=== PATIENT | male | born 1995 | race Caucasian/White ===

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

== ENCOUNTER 2018-01-05 16:22 | Emergency (ER) | payer BC ==
[2018-01-05 16:26] VITALS: BP 124/64; PULSE 66; RESP 16; TEMP 97.9; O2SAT 100
--- NOTE | 2018-01-05 17:18 | RADRPT ---
EXAM DATE/TIME: 01/05/2018 16:58 [facility] COMPARISON: No previous studies available for comparison. INDICATIONS : Off and on right knee pain for 1 year after knee surgery, states feels like knee is popping in and ou t of place MEDICAL HISTORY : None. SURGICAL HISTORY : Right knee surgery ENCOUNTER: Initial ACUITY: 1 year PAIN SCORE: 7/10 LOCATION: Right knee FINDINGS: Previous cruciate repair. Small joint effusion. Anatomic alignment. No fracture. CONCLUSION: Previous cruciate repair, joint effusion.. Jarad Adams MD FACR on January 05, 2018 at 17:15 Board Certified Radiologist. This report was verified electronically.
--- NOTE | 2018-01-05 17:43 | PD ---
HPI Chief Complaint: Injury Time Seen by Provider: 17:03 Travel History International Travel<30 days: No Contact w/Intl Traveler<30days: No Traveled to known affect area: No History of Present Illness HPI This is a 22-year-old male with right knee pain and popping sensation for several months. He reports he has had a popping sensation since he had MCL repair done by Dr. Saab last year. No fever chills. No injury or trauma. Symptom severity is mild to moderate. Aggravated by walking and slightly relieved with wearing the brace provided by the orthopedist which she has on now. [facility] Past Medical History Medical History: Denies Significant Hx Diminished Hearing: No Immunizations Current: Yes Past Surgical History Ear Surgery: Yes (TUBES IN EARS 1997) Tympanostomy Tube: Yes Social History Alcohol Use: No Tobacco Use: No Substance Use: Yes (marijuana, sandra's in the past) Allergies-Medications (Allergen,Severity, Reaction): Coded Allergies: No Known Allergies (Verified Adverse Reaction, Unknown, 01/05/18) Reported Meds & Prescriptions Reported Meds & Active Scripts Active No Active Prescriptions or Reported Medications Review of Systems Except as stated in HPI: all other systems reviewed are Neg General / Constitutional: No: Fever Eyes: No: Visual changes HENT: No: Headaches Cardiovascular: No: Chest Pain or Discomfort Respiratory: No: Shortness of Breath Gastrointestinal: No: Abdominal Pain Physical Exam Narrative GENERAL: Alert and well-appearing 22-year-old male SKIN: Warm and dry. HEAD: Normocephalic. EYES: No injection or drainage. NECK: Supple GASTROINTESTINAL: nondistended. MUSCULOSKELETAL: No cyanosis, or edema. RLE: Mild right knee swelling. No warmth or erythema of the joint. No obvious deformity. The joint is stable. Palpable DP pulse. Brisk cap refill. BACK: No CVA tenderness. Data Data Last Documented VS Vital Signs Date Time Temp Pulse Resp B/P (MAP) Pulse Ox O2 Delivery O2 Flow Rate FiO2 01/05/18 16:26 97.9 66 16 124/64 (84) 100 Orders Orders Knee, Complete (4vws) (01/05/18 ) MDM Medical Decision Making Medical Screen Exam Complete: Yes Emergency Medical Condition: Yes Differential Diagnosis ACL injury, MCL injury, fracture Narrative Course 22-year-old male here with right knee pain clicking popping sensation. He had MCL repair done by Dr. Saab last year. Extremities neurovascularly intact. X -rays negative for fracture. He is instructed to continue wearing his knee brace provided by the orthopedist follow-up with Dr. Saab this week. He agrees to plan. Diagnosis Primary Impression: Knee pain Qualified Codes: M25.561 - Pain in right knee Referrals: Orthopedist Departure Forms: Tests/Procedures, Work Release Enter return to work date: January 09, 2018 Additional Instructions: Continue wearing knee brace as directed. Call to schedule appointment for follow-up with your orthopedist Scripts No Active Prescriptions or Reported Meds Disposition: DISCHARGE HOME Condition: Stable Nikki Henry January 05, 2018 17:43
== END 2018-01-05 17:49 | disposition home or self-care (01) ==
LOC: PHEFT 16:22
DX: M25.561 Pain in right knee (principal); F12.90 Cannabis use, unspecified, uncomplicated
CPT/HCPCS: 73564; 99283